=== PATIENT | female | born 1990 | race Hispanic/Latino ===

== ENCOUNTER 2019-01-15 09:38 | Inpatient (IN) | payer MEDICAID ==
[~2019-01-15 09:38] MED LIST: ANCEF/STERILE WATER 2 GM/20 ML 2 GM/20 ML SYRINGE IV NR; APRESOLINE IV PRN; FLAGYL 500 MG/100 ML 500 MG/100 ML BAG IV NR; LOVENOX SUB-Q NR; TRANSDERM-SCOP TD SCH; ZOFRAN IV PRN
--- NOTE | 2019-01-15 11:33 | Anesthesia Day of Surgery ---
Anesthesia Day of Surgery - Day of Surgery Patient Examined: Yes Patient H&P Reviewed: Yes Patient is NPO: Yes
--- NOTE | 2019-01-15 11:33 | Anesthesia Consultation ---
Anesthesia Consult and Med Hx Date of service: 01/15/19 - Airway Anesthetic Teeth Evaluation: Good ROM Head & Neck: Adequate Mental/Hyoid Distance: Adequate Mallampati Class: Class II Intubation Access Assessment: Good - Pulmonary Exam CTA: Yes - Cardiac Exam Cardiac Exam: RRR - Pre-Operative Health Status ASA Pre-Surgery Classification: ASA3 Proposed Anesthetic Plan: General (Obese , HTN ASA3, for GA) - Pulmonary Hx Asthma: Yes (Last used rescue inhaler 6 mos ago) Hx Sleep Apnea: Yes - Cardiovascular System Hx Hypertension: Yes - Central Nervous System Hx Psychiatric Problems: Yes - Endocrine Hx Hypothyroidism: Yes
[2019-01-15] MEDS: LACTATED RINGERS 1,000 ML IV SCH ×2 (12:00→20:14)
[2019-01-15 12:15] LABS: Basophils % (Auto) 0.6 % (0.0-1.8); Eosinophils # (Auto) 0.1 K/mm3 (0.0-0.4); Eosinophils % (Auto) 1.5 % (0.0-4.3); Hematocrit 40.9 % (30.3-42.9); Hemoglobin 13.9 gm/dl (10.1-14.3); Lymphocytes # (Auto) 2.4 K/mm3 (1.2-5.4); Lymphocytes % (Auto) 34.5 % (13.4-35.0); Mean Corpuscular HGB Conc 34 % (30-34); Mean Corpuscular Volume 87 fl (79-97); Monocytes # (Auto) 0.7 K/mm3 (0.0-0.8); Monocytes % (Auto) 9.7 % (0.0-7.3); Platelet Count 273 K/mm3 (140-440); Red Blood Count 4.69 M/mm3 (3.65-5.03); Red Cell Distribution Width 14.9 % (13.2-15.2)
[2019-01-15 12:40] LABS: Alanine Aminotransferase 48 units/L (7-56); Albumin 4.2 g/dL (3.9-5); BUN/Creatinine Ratio 15; Blood Urea Nitrogen 9 mg/dL (7-17); Calcium 9.3 mg/dL (8.4-10.2); Hemolysis Index 12
[2019-01-15] MEDS ORDERED: MARCAINE 0.5% INFILTRATI ONE (12:57)
[2019-01-15] MEDS ORDERED: XYLOCAINE 1% 20 mL ONE (12:57)
[2019-01-15] MEDS ORDERED: MARCAINE-EPI 0.5%-1:200,000 INFILTRATI ONE (12:57)
[2019-01-15] MEDS ORDERED: ROBINUL ONE (14:07)
[2019-01-15] MEDS ORDERED: BLOXIVERZ ONE (14:07)
[2019-01-15] MEDS ORDERED: ZEMURON IV ONE (14:07)
[2019-01-15] MEDS ORDERED: XYLOCAINE MPF 2% ONE (14:07)
[2019-01-15] MEDS ORDERED: DECADRON ONE (14:07)
[2019-01-15] MEDS ORDERED: ZOFRAN ONE (14:07)
[2019-01-15] MEDS ORDERED: SUBLIMAZE ONE (14:08)
[2019-01-15] MEDS ORDERED: DIPRIVAN 10 MG/ML IV ONE (14:08)
[2019-01-15] MEDS ORDERED: NACL 0.9% IR ONE (14:48)
[2019-01-15] MEDS ORDERED: XYLOCAINE 1% 20 mL INFILTRATI ONE (14:48)
[2019-01-15] MEDS ORDERED: MARCAINE-EPI/PF 0.5%-1:200,000 INFILTRATI ONE (14:48)
--- NOTE | 2019-01-15 16:10 | Post Anesthesia Evaluation ---
- Post Anesthesia Evaluation Patient Participated: Yes Airway Patent: Yes Stable Respiratory Function: Yes Nausea/Vomiting: No Temp > 96.8F: Yes Pain Manageable: Yes Adequeate Hydration: Yes Anesthesia Complications: No Block Receding Appropriately: Not Applicable Patient on Ventilator: No
[2019-01-15] MEDS: TORADOL IV SCH (16:13)
[2019-01-15] MEDS: DILAUDID IV PRN ×3 (16:14→22:49)
[2019-01-15] MEDS ORDERED: DEMEROL ONE (16:36)
[2019-01-15] MEDS: MYLICON PO PRN ×2 (16:38→22:49)
[2019-01-15] MEDS: REGLAN IV PRN (22:49)
[2019-01-16] MEDS: DILAUDID IV PRN ×3 (03:46→12:05)
[2019-01-16] MEDS: LACTATED RINGERS 1,000 ML IV SCH (03:47)
[2019-01-16] MEDS: TORADOL IV SCH ×3 (06:02→12:11)
[2019-01-16] MEDS: MYLICON PO PRN ×2 (06:06→12:04)
[2019-01-16 07:46] LABS: HCG Qualitative,Urine Negative (Negative)
[2019-01-16] MEDS ORDERED: LOVENOX SUB-Q SCH (10:00)
[2019-01-16 11:33] LABS: Basophils # (Auto) 0.1 K/mm3 (0.0-0.1); Basophils % (Auto) 0.9 % (0.0-1.8); Lymphocytes # (Auto) 1.6 K/mm3 (1.2-5.4); Lymphocytes % (Auto) 13.6 % (13.4-35.0); Mean Corpuscular HGB Conc 34 % (30-34); Mean Corpuscular Volume 86 fl (79-97); Monocytes # (Auto) 1.1 K/mm3 (0.0-0.8); Monocytes % (Auto) 9.6 % (0.0-7.3); Platelet Count 280 K/mm3 (140-440); Red Blood Count 4.41 M/mm3 (3.65-5.03); Red Cell Distribution Width 15.1 % (13.2-15.2)
[2019-01-16 11:50] LABS: Alanine Aminotransferase 50 units/L (7-56); Albumin 3.7 g/dL (3.9-5); BUN/Creatinine Ratio 15; Blood Urea Nitrogen 6 mg/dL (7-17); Calcium 8.9 mg/dL (8.4-10.2)
[2019-01-16 11:51] LABS: Hemolysis Index 32
[2019-01-16] MEDS: REGLAN IV PRN (12:04)
--- NOTE | 2019-01-16 12:39 | Discharge Summary ---
Providers - Providers Date of Admission: 01/15/19 10:26 Date of discharge: 01/16/19 Attending physician: GLENN TOBIN 01/14/19 22:10 Physical Therapy Evaluation and Treat [CONS] Routine Comment: Reason For Exam: ambulation Hospitalization Condition: Good Procedures: Lap band removal convert to sleeve Disposition: DC-01 TO HOME OR SELFCARE Core Measure Documentation - Palliative Care Palliative Care/ Comfort Measures: Not Applicable - Core Measures Any of the following diagnoses?: none Exam - Constitutional Vitals: Temp Pulse Resp BP Pulse Ox 98.2 F 107 H 20 123/75 95 01/16/19 07:05 01/16/19 07:05 01/16/19 07:05 01/16/19 07:05 01/16/19 07:05 General appearance: Present: no acute distress, well-nourished - EENT Eyes: Present: PERRL, EOM intact ENT: hearing intact, clear oral mucosa, dentition normal - Neck Neck: Present: supple, normal ROM - Respiratory Respiratory effort: normal Respiratory: bilateral: CTA - Cardiovascular Rhythm: regular - Extremities Extremities: no ischemia, pulses intact, pulses symmetrical, No edema, normal temperature, normal color, Full ROM Peripheral Pulses: within normal limits - Abdominal General gastrointestinal: Present: soft, non-tender Female genitourinary: Present: normal - Rectal Rectal Exam: deferred - Integumentary Integumentary: Present: clear, warm, dry - Musculoskeletal Musculoskeletal: strength equal bilaterally - Psychiatric Psychiatric: appropriate mood/affect Plan Activity: no restrictions Weight Bearing Status: Full Weight Bearing Diet: other (Bariatric) Wound: keep clean and dry Follow up with: ZULLY SAAVEDRA [Other] - 7 Days GLENN TOBIN MD [Staff Physician] - 14 Days
[2019-01-16 12:58] VITALS: BP 133/72
== END 2019-01-16 16:00 | disposition home or self-care (01) | DRG 327 ==
LOC: 3A 10:26 → 3B-SURG 16:57
PROVIDERS: ADMIT Specialist; ATTEND Specialist
PROC: 0DB64Z3 Excision of Stomach, Percutaneous Endoscopic Approach, Vertical (ICD-10-PCS; principal; 2019-01-15)
PROC: 0BQT4ZZ Repair Diaphragm, Percutaneous Endoscopic Approach (ICD-10-PCS; 2019-01-15)
PROC: 0DNW4ZZ Release Peritoneum, Percutaneous Endoscopic Approach (ICD-10-PCS; 2019-01-15)
PROC: 0DP64CZ Removal of Extraluminal Device from Stomach, Percutaneous Endoscopic Approach (ICD-10-PCS; 2019-01-15)
DX: K95.09 Other complications of gastric band procedure (principal); F31.31 Bipolar disorder, current episode depressed, mild; Z68.43 Body mass index [BMI] 50.0-59.9, adult; E66.01 Morbid (severe) obesity due to excess calories; K21.9 Gastro-esophageal reflux disease without esophagitis; F41.9 Anxiety disorder, unspecified; E03.9 Hypothyroidism, unspecified; I10 Essential (primary) hypertension; K30 Functional dyspepsia; Y83.1 Surgical operation with implant of artificial internal device as the cause of abnormal reaction of the patient, or of later complication, without mention of misadventure at the time of the procedure; K66.0 Peritoneal adhesions (postprocedural) (postinfection); K44.9 Diaphragmatic hernia without obstruction or gangrene; M34.9 Systemic sclerosis, unspecified; Z90.89 Acquired absence of other organs; Z90.49 Acquired absence of other specified parts of digestive tract; Z83.3 Family history of diabetes mellitus; Z82.61 Family history of arthritis; Z81.8 Family history of other mental and behavioral disorders; Z80.9 Family history of malignant neoplasm, unspecified; Z82.49 Family history of ischemic heart disease and other diseases of the circulatory system; Y92.098 Other place in other non-institutional residence as the place of occurrence of the external cause
CPT/HCPCS: 36415; 80053; 81025; 85025; 88307; G0378; J0690; J1100; J1170; J1650; J1885; J2175; J2405; J2704; J2710; J2765; J3010; J7120